=== PATIENT | female | born 1950 | race Caucasian/White ===

== ENCOUNTER 2016-06-05 02:26 | Emergency (ER) | payer OTHER ==
--- NOTE | 2016-06-05 02:51 | PROVIDER DOCUMENTATION ---
HPI-General Adult - General Source: patient, family - History of Present Illness -Gen Adult Nature of Presenting Problems: 65 year old F presents to the Ed via EMS with a cc of hypoglycemia. Pt states that she does not remember what happened. Per EMS, on their arrival pts FSBS was 38. IV was started and pt was given an amp of D50. FSBS then came up to 216. Family member states that pts mother called him and told him that pt was not feeling well. Family member states that when he got to pt she was not acting herself and refusing to drink a coke or take any kind of medications. He states that pt ate a salad for supper tonight. Location of Pain/Injury: reports: none Pain Radiation: reports: no radiation Quality of Pain: reports: none Severity: reports: moderate Onset/Duration: reports: 1-3 hours ago Timing: reports: resolved prior to arrival Associated Symptoms: reports: denies symptoms Similar Symptoms Previously?: Yes Recently seen or treated by another doctor?: No - Diabetes Related Context Context: reports: low blood sugar, change in mental status <Candie Her - Last Filed: 06/05/16 02:53> <Campbell Gonzalez - Last Filed: 06/05/16 03:16> - General Chief Complaint: Low Blood Sugar Time Seen by Provider: 06/05/16 02:39 Allergies/Adverse Reactions: Patient Allergies Allergy/AdvReac Type Severity Reaction Status Date / Time codeine AdvReac Intermediate VOMITING Verified 09/16/14 17:16 Home Medications: Home Medication List Medication Instructions Recorded Confirmed Last Taken Type Duloxetine [Cymbalta] 60 mg PO DAILY #0 06/12/13 03/04/16 03/02/16 Rx Lisinopril 10 mg PO DAILY #0 06/12/13 03/04/16 03/02/16 Rx Alprazolam [Xanax] 0.5 mg PO QHS PRN 10/31/13 03/04/16 09/15/14 History Insulin Glargine [Lantus] 15 unit SUBQ QHS 03/05/16 03/05/16 Unknown History Insulin Lispro [Humalog] 5 unit SQ TID CC 03/05/16 03/05/16 Unknown History Dicyclomine [Bentyl] 20 mg PO TID PRN PRN #20 capsule 03/06/16 Unknown Rx Levofloxacin [Levaquin] 500 mg PO DAILY #7 tablet 03/06/16 Unknown Rx Metronidazole 500 mg PO TID #21 tablet 03/06/16 Unknown Rx Pantoprazole [Protonix] 40 mg PO DAILY@0700 #10 tablet 03/06/16 Unknown Rx Review of Systems - Adult - REVIEW OF SYSTEMS - ADULT Constitutional: denies: chills, fever Eyes: reports: no symptoms reported Ears, Nose, Mouth & Throat: reports: no symptoms reported Cardiovascular: denies: chest pain, palpitations Respiratory: denies: cough, shortness of breath Gastrointestinal: denies: nausea, vomiting Genitourinary: denies: dysuria, hematuria Musculoskeletal: denies: muscle aches, muscle weakness Integumentary: denies: skin sores/ulcer, skin thickening Neurological: reports: no symptoms reported Psychiatric: reports: no symptoms reported Endocrine: reports: no symptoms reported Hematologic/Lymphatic: reports: no symptoms reported Allergic/Immunologic: reports: no symptoms reported All Other Systems: Reviewed and Negative <Candie Her - Last Filed: 06/05/16 02:53> Past History - Adult - PAST MEDICAL HISTORY-ADULT Review of Records: reports: Nursing Assessment Review, Medications Reviewed Major Childhood Illnesses: reports: denies history Cardiovascular: reports: HTN, hyperlipidemia Respiratory: reports: denies history Gastrointestinal: reports: denies history Obstetrical/Gynecological: reports: denies history Genitourinary: reports: denies history Musculoskeletal: reports: denies history Neurological: reports: denies history Psychiatric: reports: anxiety Endocrine/Immune: reports: Diabetes Diabetes Type: Type 1 Other Conditions: reports: denies history - PRIOR SURGERIES/PROCEDURES Surgical/Procedure History: reports: hysterectomy, back/neck (back surgery), other (athroscopy) - PRIOR HOSPITALIZATIONS Prior Hospitalizations: reports: none - IMMUNIZATION STATUS Childhood Immunizations: See Nurse Assessment Flu Vaccine: See Nurse Assessment - FAMILY HISTORY Family History: reviewed, not pertinent - SOCIAL HISTORY Smoking: non-smoker Substance Use: none/never Alcohol Use Frequency: never <Candie Her - Last Filed: 06/05/16 02:53> Physical Exam-General - PHYSICAL EXAM-ADULT Initial Vital Signs Reviewed: Yes - CONSTITUTIONAL General Appearance: appears well, alert, no apparent distress - RESPIRATORY Respiratory: chest non-tender, lungs clear, normal breath sounds - CARDIOVASCULAR Cardiovascular: normal peripheral pulses, regular rate, rhythm, no edema - GASTROINTESTINAL (ABDOMEN) Abdominal Exam: normal bowel sounds, non tender, soft - MUSCULOSKELETAL Extremity: normal inspection - SKIN Integumentary: normal color, normal turgor, warm/dry - PSYCHIATRIC Psych/Mental Status: normal mood/affect, normal thought content, normal thought process, oriented x 3 <Candie Her - Last Filed: 06/05/16 02:53> Departure <Candie Her - Last Filed: 06/05/16 02:53> - Departure Time of Disposition Order: 04:00 Certified Medical Emergency: Emergent <Campbell Gonzalez - Last Filed: 06/05/16 03:16> - Departure DIAGNOSIS: Hypoglycemia associated with diabetes Disposition: HOME 01 Condition: Good Additional Instructions: RECHECK SUGAR @ 6AM. IF DRIFTING LOW EAT AGAIN. Attestation - Scribe Verification/Attestation Scribe:: Candie Her Acting as Scribe for:: Campbell Gonzalez Scribe documention review:: This chart was documented by a scribe and accurately reflects the service the provider performed and the decisions made by the provider. <Candie Her - Last Filed: 06/05/16 02:53> Physician Attestation - Physician Attestation I, the provider, attest to the following statement:: Campbell Gonzalez Physician documentation Attestation:: This documentation recorded by the scribe accurately reflects the service I personally performed and the decisions made by me. <Candie Her - Last Filed: 06/05/16 02:53>
[2016-06-05 04:17] VITALS: BP 123/55
== END 2016-06-05 04:15 | disposition home or self-care (01) ==
LOC: P.ED 02:26
DX: E11.649 Type 2 diabetes mellitus with hypoglycemia without coma (principal); R41.82 Altered mental status, unspecified; I10 Essential (primary) hypertension; E78.5 Hyperlipidemia, unspecified; F41.9 Anxiety disorder, unspecified; Z79.4 Long term (current) use of insulin; Z79.899 Other long term (current) drug therapy
CPT/HCPCS: 82948

== ENCOUNTER 2018-06-02 12:15 | Inpatient (IN) ==
[2018-06-02] MEDS ORDERED: ASPIRIN PO ONE (13:33)
[2018-06-02] MEDS ORDERED: ASPIRIN PR ONE (13:33)
[2018-06-02] MEDS ORDERED: NS 1,000 ML IV ONE ×4 (13:35→18:28)
[2018-06-02 13:48] LABS: BASO# 0.03 X1000 (0.0-0.2); BASO% 0.3 % (0.0-0.8); HEMATOCRIT 39.4 % (37.0-47.0); HEMOGLOBIN 12.9 g/dL (12.0-16.0); IMM GRAN# 0.01 X1000 (0.0-0.04); IMM GRAN% 0.1 % (0.0-0.5); LYMPH# 1.04 X1000 (1.2-3.4); LYMPH% 10.1 % (20.5-51.1); MCH 28.2 PG (27-31); MCHC 32.7 g/dL (33-37); MCV 86.2 FL (81-99); MONO% 5.9 % (1.7-9.3); MPV 12.7 FL (7.4-10.4); NEUT# 8.57 X1000 (1.4-6.5); NEUT% 83.6 % (42.2-75.2); PLT 229 X1000 (130-400); RBC 4.57 XMIL (4.2-5.4); RDW 14.1 % (11.5-14.5); WBC 10.25 X1000 (4.8-10.8)
[2018-06-02 13:53] LABS: INR 0.94; PROTIME 13.1 Seconds (11.0-16.0)
--- NOTE | 2018-06-02 13:59 | PROVIDER DOCUMENTATION ---
This chart was entered by Lesly Garcia Scribe, acting as scribe for Karla Thorpe MD. HPI-General Adult - General Chief Complaint: N/V/D Stated Complaint: CHEST PAIN Time Seen by Provider: 06/02/18 12:42 Source: patient Allergies/Adverse Reactions: Patient Allergies Allergy/AdvReac Type Severity Reaction Status Date / Time codeine AdvReac Intermediate VOMITING Verified 05/14/18 10:21 Home Medications: Home Medication List Medication Instructions Recorded Confirmed Last Taken Type Duloxetine [Cymbalta] 60 mg PO DAILY #0 06/12/13 08/02/17 03/02/16 Rx Lisinopril 10 mg PO DAILY #0 06/12/13 08/02/17 03/02/16 Rx Alprazolam [Xanax] 0.5 mg PO QHS PRN 10/31/13 08/02/17 09/15/14 History Insulin Glargine [Lantus] 15 unit SUBQ QHS 03/05/16 08/02/17 Unknown History Insulin Lispro [Humalog] 5 unit SQ TID CC 03/05/16 08/02/17 Unknown History Dicyclomine [Bentyl] 20 mg PO TID PRN PRN #20 capsule 03/06/16 08/02/17 Unknown Rx Pantoprazole [Protonix] 40 mg PO DAILY@0700 #10 tablet 03/06/16 08/02/17 Unknown Rx Hydrocodone/APAP 5 mg/325 mg 1 - 2 tab PO Q6H PRN PRN #18 tablet 11/04/16 Unknown Rx [[place]-5] ATORVAstatin [Lipitor] 40 mg PO QHS #30 tab 08/06/17 Unknown Rx Aspirin 162 mg PO DAILY #30 chewtab 08/06/17 Unknown Rx Metoprolol [Lopressor] 12.5 mg PO Q6H #120 tab 08/06/17 Unknown Rx Amoxicillin/Pot Clavulanate 875 mg PO Q12HR #14 tab 05/14/18 Unknown Rx [Augmentin] - History of Present Illness -Gen Adult Nature of Presenting Problems: Patient is a 67 year old female who presents to the ED with multiple complaints. Patient states symptoms of generalized aches, nausea, vomiting, diarrhea, chest pain and back pain. Patient states symptoms started last night. Patient states she has an insulin pump and the pump was telling her, her blood sugar was elevated. Patient states taking 3 nitro prior to arrival for chest pain. Patient states having similar symptoms with her prior [place]. Location of Pain/Injury: reports: generalized Pain Radiation: reports: no radiation Quality of Pain: reports: aching Severity: reports: mild Onset/Duration: reports: last night Timing: reports: still present Context/Activities at Onset: reports: light activity Modifying Factors: improves with: nothing Associated Symptoms: reports: back/neck pain (back pain), chest pain, diarrhea, nausea, vomiting Similar Symptoms Previously?: Yes Recently seen or treated by another doctor?: No - Diabetes Related Context Context: reports: high blood sugar Review of Systems - Adult - REVIEW OF SYSTEMS - ADULT Constitutional: reports: no symptoms reported. denies: chills, fever, fatique Eyes: reports: no symptoms reported Ears, Nose, Mouth & Throat: reports: no symptoms reported Cardiovascular: reports: chest pain. denies: heart murmur, irregular heart rate Respiratory: reports: no symptoms reported Gastrointestinal: reports: diarrhea, nausea, vomiting. denies: abdominal pain Genitourinary: reports: no symptoms reported Musculoskeletal: reports: back pain, muscle aches. denies: joint pain, neck pain Integumentary: reports: no symptoms reported Neurological: reports: no symptoms reported Psychiatric: reports: no symptoms reported Endocrine: reports: no symptoms reported Hematologic/Lymphatic: reports: no symptoms reported Allergic/Immunologic: reports: no symptoms reported All Other Systems: Reviewed and Negative Past History - Adult - PAST MEDICAL HISTORY-ADULT Review of Records: reports: Nursing Assessment Review, Medications Reviewed, Social history reviewed & non-contributory. Major Childhood Illnesses: reports: denies history Cardiovascular: reports: HTN, hyperlipidemia, [place] Respiratory: reports: denies history Gastrointestinal: reports: denies history Obstetrical/Gynecological: reports: denies history Genitourinary: reports: denies history Musculoskeletal: reports: denies history Neurological: reports: denies history Psychiatric: reports: anxiety Endocrine/Immune: reports: Diabetes Other Conditions: reports: denies history - PRIOR SURGERIES/PROCEDURES Surgical/Procedure History: reports: hysterectomy, back/neck (back surgery), other (athroscopy) - PRIOR HOSPITALIZATIONS Prior Hospitalizations: reports: none - IMMUNIZATION STATUS Childhood Immunizations: See Nurse Assessment Flu Vaccine: See Nurse Assessment - FAMILY HISTORY Family History: reviewed, not pertinent - SOCIAL HISTORY Smoking: denies Substance Use: denies Living Situation: family Physical Exam-General - PHYSICAL EXAM-ADULT Initial Vital Signs Reviewed: Yes - CONSTITUTIONAL General Appearance: alert, mild distress - EYES Eyes: pink conjunctivae - HEAD, EARS, NOSE, MOUTH & THROAT HENMT: moist mucous membranes - NECK Neck: supple - RESPIRATORY Respiratory: lungs clear, normal breath sounds, no pleuratic chest pain, no respiratory distress, no accessory muscle use - CARDIOVASCULAR Cardiovascular: normal peripheral pulses, regular rate, rhythm, no edema, no murmur - GASTROINTESTINAL (ABDOMEN) Abdominal Exam: non tender, soft - LYMPHATIC Lymphatic: no adenopathy - MUSCULOSKELETAL Extremity: normal gait Peripheral Pulses: radial (R): 2+, radial (L): 2+ - SKIN Integumentary: normal color, normal turgor - NEUROLOGIC Neurologic: grossly normal, no motor/sensory deficits - PSYCHIATRIC Psych/Mental Status: normal mood/affect, normal thought content, normal thought process, oriented x 3 Progress - PLAN OF CARE/RESULTS Progress/Plan/Lab Results: Vital Signs - 8 hr 06/02/18 12:16 Temperature 98.1 F Pulse Rate 88 Respiratory Rate 20 Blood Pressure 133/066 O2 Sat by Pulse Oximetry 100 Orders Category Date Time Status Cardiac Monitoring DIRECTED Care 06/02/18 13:34 Active IV Insertion ORDERED Care 06/02/18 12:45 Active Oxygen Therapy- ED Nursing DIRECTED Care 06/02/18 13:34 Active Saline Loc NOW Care 06/02/18 13:34 Active CHEST-PORTABLE [RAD] Stat Exams 06/02/18 13:34 Ordered CBC WITH ELECTRONIC DIFF [HEME] Stat Lab 06/02/18 13:34 Uncollected CK PROFILE [SP CHEM] Stat Lab 06/02/18 13:34 Uncollected COMPREHENSIVE METABOLIC PANEL [CHEM] Stat Lab 06/02/18 13:34 Uncollected PRO B-NATRIURETIC PEPTIDE Stat Lab 06/02/18 13:34 Uncollected PROTIME WITH INR [COAG] Stat Lab 06/02/18 13:34 Uncollected PTT [COAG] Stat Lab 06/02/18 13:34 Uncollected TROPONIN T Stat Lab 06/02/18 13:34 Uncollected 0.9% Sodium Chloride Inj [Ns] 1,000 ml Med 06/02/18 13:35 Active IV 500 mls/hr Aspirin Med 06/02/18 13:33 Discontinued 300 mg TX NOW ONE Aspirin Med 06/02/18 13:33 Discontinued 325 mg PO NOW ONE CP/SOB/Palp >45 yrs of Age Stat Oth 06/02/18 13:[address] depression v3-v5, pt says when she had similar symptoms last Oct was having an [place], has stents, no chest pain on arrival, did take 3 nitro, 1/hour this am. Trop wnl, BS in 500s, emesis in ED non bloody, giving zofran 8 units regular insulin IV and starting drip, call out to hospitalist 1442, pt aware pH 7.15 1455 d/w Connie, HPI PMH EKG labs abg drip admit ICU Result Diagrams: 06/02/18 12:40 06/02/18 12:40 - EKG 1 Time of EKG reading by physician:: 12:19 EKG Read and Signed by:: Karla Thorpe EKG Interpretation (*Must complete 3 of following elements*): Abnormal Rate: 97 Rhythm: normal sinus rhythm TX Interval: normal Comments: possible left atrial enlargement; nonspecific ST abnormality. - XRAY 1 XRAY Study: Chest Impression: See EMR Report ( EXAM: CHEST-PORTABLE INDICATION: chest pain TECHNIQUE: One view COMPARISON: 05/14/2018 FINDINGS: There is a calcified granuloma at the right lung base. The lungs are grossly clear. There is no discrete pleural fluid collection or pneumothorax. The cardiomediastinal silhouette and central vasculature are grossly unremarkable. IMPRESSION: No evidence of acute pathology by plain radiograph. Electronically signed by Daniel Hickey 06/02/2018 2:06 PM 06/02/18 1406 Interpreting Physician: Daniel Hickey MD Dictated Date/Time: 06/02/18 1406 cc: Karla Thorpe MD; Daniel Day MD) Departure - Departure Date of Disposition Decision: 06/02/18 Time of Disposition Decision: 14:44 DIAGNOSIS: Hyperglycemia, Cardiac ischemia, DKA (diabetic ketoacidoses) Disposition: ADMITTED INPATIENT 09 Certified Medical Emergency: Emergent Condition: Good Referrals and Follow-Ups: Daniel Day MD [Primary Care Provider] - - Critical Care Note This patient required my direct & personal management of CC.: Yes Total Time (mins): 45 Critical Care Statement: This patient required my direct personal management to treat or rule out processes, the absence of which, could potentiallly result in sudden, clinically significant life or limb threatening deterioration. Attestation - Physician/ MARCEL Attestation The physician spent face to face time with patient:: Yes Advanced Practice Provider documentation review:: Supervising physician onsite and consulted in the evaluation and care of this patient. The physician did have a face to face encounter with the patient. This chart was documented by the indicated scribe, (Lesly Garcia Scribe) and accurately reflects the services I performed and decisions made by me, Karla Thorpe MD, as attested by the provider's signature.
[2018-06-02 14:05] LABS: ALBUMIN 4.1 g/dL (3.5-5.0); CALCIUM 9.3 mg/dL (8.8-10.2); POTASSIUM 5.5 mmol/L (3.5-5.1); TOTAL BILIRUBIN 0.9 mg/dL (0.20-1.00); TOTAL PROTEIN 6.8 g/dL (6.3-8.3)
--- NOTE | 2018-06-02 14:08 | Diag Imaging Result Doc PS360 ---
EXAM: CHEST-PORTABLE INDICATION: chest pain TECHNIQUE: One view COMPARISON: 05/14/2018 FINDINGS: There is a calcified granuloma at the right lung base. The lungs are grossly clear. There is no discrete pleural fluid collection or pneumothorax. The cardiomediastinal silhouette and central vasculature are grossly unremarkable. IMPRESSION: No evidence of acute pathology by plain radiograph. Electronically signed by Daniel Hickey 06/02/2018 2:06 PM
[2018-06-02] MEDS ORDERED: HUMULIN R (PARKWAY) IV ONE (14:13)
[2018-06-02] MEDS ORDERED: ZOFRAN IV ONE (14:30)
[2018-06-02 14:35] LABS: BE -18.8 mmoll (-2.0-2.0); BLOOD TYPE VENOUS; PO2(98.6) 48 mmHg (30-55); SAMPLE BLOOD; SAO2 83.1 % (40.0-85.0)
[2018-06-02 14:41] LABS: pH(98.6) 7.16 (7.32-7.43)
[2018-06-02 14:42] LABS: PCO2(98.6) 23 mmHg (40-60)
[2018-06-02] MEDS ORDERED: NS 2,000 ML ONE (16:45)
[2018-06-02 16:53] LABS: PHOSPHORUS 4.5 mg/dL (2.7-4.5); POTASSIUM 4.3 mmol/L (3.5-5.1)
[2018-06-02] MEDS ORDERED: ZOFRAN IV PRN (17:23)
[2018-06-02] MEDS ORDERED: HUMULIN R (PARKWAY) 100 UNITS in NS 100 ML IV SCH (17:30)
[2018-06-02] MEDS ORDERED: ROBITUSSIN-DM PO PRN (17:35)
[2018-06-02] MEDS ORDERED: ROCEPHIN ONE (17:47)
[2018-06-02] MEDS ORDERED: NS 50 ML ONE (17:48)
[2018-06-02] MEDS ORDERED: ROCEPHIN 1 GM in NS 50 ML IV SCH (18:00)
[2018-06-02] MEDS ORDERED: HUMULIN R (PARKWAY) 100 UNITS in NS 100 ML IV ONE (18:00)
--- NOTE | 2018-06-02 18:22 | HISTORY AND PHYSICAL ---
CHIEF COMPLAINT: Nausea, vomiting, diarrhea. HISTORY OF PRESENT ILLNESS: This is a 67-year-old female with a history of insulin-dependent diabetes mellitus, hypertension and CAD status post NH in July 2017. She presents to the emergency room complaining of about 24 hours of nausea, vomiting, and diarrhea. She has an insulin pump. She states that she feels like her pump is not functioning well. She reported blood sugars in the 300s per her pump. She denied any fevers, chills. She did state that after the persistent vomiting that she started having her back and chest began to hurt during episodes of vomiting. She took 3 nitroglycerin prior to presenting to the emergency room. She continues to have pain during vomiting. PAST MEDICAL HISTORY: 1. Diabetes mellitus insulin-dependent with insulin pump. 2. Depression. 3. Hypertension. 4. CAD status post NH in July 2017. PAST SURGICAL HISTORY: Hysterectomy, right shoulder surgery, cervical disk surgery and bilateral knee arthroscopies. ALLERGIES: Codeine which causes vomiting. SOCIAL HISTORY: She lives with her . She denies alcohol, tobacco, or illicit drug use. REVIEW OF SYSTEMS: Discussed with the patient with pertinent positives stated in the HPI. She denied any syncope, dizziness, any shortness of breath, PND, orthopnea, any palpitations, any black or bloody vomitus or stools and constipation, any hematuria, dysuria, frequency, urgency. PHYSICAL EXAMINATION: GENERAL: This is a very pleasant 67-year-old female who is sitting up in the bed in no distress. VITAL SIGNS: Blood pressure is 133/66 with a heart rate of 80, respirations are 20, temperature is 98.4 degrees with room air saturations 98-100%. EYES: Pupils are equal, round, react to light. EOMs are intact. Sclerae are anicteric. CARDIOVASCULAR: Regular rate and rhythm. S1 and S2 appreciated. No murmur. She has no lower extremity edema. Calves are nontender to palpation with peripheral pulses palpable x4 extremities. PULMONARY: Breath sounds does have some rhonchi scattered throughout that clear to cough. Chest rises and falls symmetric with respiration. Chest wall is tender to palpation midsternal . GASTROINTESTINAL: Abdomen soft, nontender, nondistended with bowel sounds in all 4 quadrants. NEUROLOGIC: She is alert and oriented x3. SKIN: Warm and dry. LABS: WBC is 10.2 with hemoglobin 12.9, hematocrit 39.4, platelets of 229,000. Sodium is 134, potassium 4.3, CO2 is 13 with an anion gap of 28, BUN 22, creatinine 1 with a glucose of 523. Troponin is negative. Chest x-ray reveals no evidence of acute pathology. ASSESSMENT AND PLAN: 1. Diabetic ketoacidosis. 2. Diabetes mellitus type 1 with hyperglycemia. 3. Depression. 4. Hypertension. 5. Recent upper respiratory infection. PLAN: The patient will be admitted to ICU for close monitoring. She will be placed on DKA protocol. Will draw a stat BMP, magnesium, BNP and cardiac enzymes as well as troponin. She will remain NPO at present. We will identify her home medications and continue these as appropriate. As she has had a recent upper respiratory infection she continues with a cough will give Robitussin DM and Rocephin. Further treatments pending hospital course. Dictated by CRISTI Dwyer for Alex Rosales MD This chart was documented by, CRISTI Dwyer and accurately reflects the services performed, treatment plan and medical decisions as attested by the providers signature Alex Rosales MD. cc: CRISTI Dwyer MD
[2018-06-02] MEDS ORDERED: POTASSIUM CHLORIDE 40 MEQ/SWI 40 MEQ/100 ML IVPB IV PRN (20:20)
[2018-06-02] MEDS ORDERED: MAGNESIUM SULFATE 2 GM/S.W.I. 2 GM/50 ML IVPB IV PRN (20:20)
[2018-06-02] MEDS ORDERED: POTASSIUM CHLORIDE 20 MEQ/SWI 20 MEQ/100 ML IVPB IV PRN (20:20)
[2018-06-02] MEDS ORDERED: SODIUM PHOSPHATE 30 MMOL in D5W 250 ML IV PRN (20:20)
[2018-06-02] MEDS ORDERED: POTASSIUM CHLORIDE 20% LIQUID PO PRN (20:20)
[2018-06-02] MEDS ORDERED: POTASSIUM CHLORIDE 10% LIQUID PO PRN (20:20)
[2018-06-02] MEDS ORDERED: D5 NS 1,000 ML IV SCH (20:20)
[2018-06-02] MEDS ORDERED: D50W SYRINGE IV PRN (20:20)
[2018-06-02 20:22] LABS: BE -9.2 mmoll (-2.0-2.0); BLOOD TYPE VENOUS; HCO3-(ACT) 16.1 mmoll (22-27); PCO2(98.6) 40 mmHg (40-60); PO2(98.6) 13 mmHg (30-55); SAMPLE BLOOD; SAO2 26.8 % (40.0-85.0); pH(98.6) 7.25 (7.32-7.43)
[2018-06-02] MEDS ORDERED: NS IV SCH (20:32)
[2018-06-02] MEDS ORDERED: HUMULIN R IV SCH (20:32)
[2018-06-02] MEDS: NS 1,000 ML IV SCH ×4 (20:33→23:00)
[2018-06-02 20:38] LABS: AGAP 16; BUN 20 mg/dL (8-22); CALCIUM 8.2 mg/dL (8.8-10.2); CHLORIDE 105 mmol/L (98-107); COSMO 286; CREATININE 0.9 mg/dL (0.5-0.9); ESTIMATED GFR > 60; GLUCOSE 234 mg/dL (70-104); PHOSPHORUS 3.1 mg/dL (2.7-4.5); POTASSIUM 4.5 mmol/L (3.5-5.1); SODIUM 138 mmol/L (136-145); TCO2 17 mmol/L (25-35)
[2018-06-02] MEDS ORDERED: XANAX PO SCH (21:00)
[2018-06-02 23:43] LABS: BE -5.3 mmoll (-2.0-2.0); BLOOD TYPE VENOUS; HCO3-(ACT) 20.5 mmoll (22-27); PCO2(98.6) 37 mmHg (40-60); PO2(98.6) 37 mmHg (30-55); SAMPLE BLOOD; SAO2 83.9 % (40.0-85.0); pH(98.6) 7.34 (7.32-7.43)
--- NOTE | 2018-06-03 00:01 | HISTORY AND PHYSICAL ---
ADDENDUM Patient seen and examined by myself. Full note dictated and discussed with nurse practitioner. Patient presented to the emergency department with increased nausea, vomiting, and diarrhea. She thinks her insulin pump has not been working correctly. We will admit her to the ICU for diabetic ketoacidosis. Place her on insulin and follow. cc: Alex Rosales MD
[2018-06-03 00:23] LABS: AGAP 11; BUN 17 mg/dL (8-22); CHLORIDE 107 mmol/L (98-107); COSMO 275; CREATININE 0.8 mg/dL (0.5-0.9); ESTIMATED GFR > 60; GLUCOSE 133 mg/dL (70-104); PHOSPHORUS 2.9 mg/dL (2.7-4.5); POTASSIUM 4.7 mmol/L (3.5-5.1); SODIUM 136 mmol/L (136-145); TCO2 18 mmol/L (25-35)
[2018-06-03] MEDS: HUMULIN R (PARKWAY) SUBQ SCH ×3 (06:18→16:13)
[2018-06-03] MEDS: NS 1,000 ML IV SCH (06:21)
[2018-06-03] MEDS ORDERED: XANAX PO PRN ×2 (06:47→06:51)
[2018-06-03] MEDS ORDERED: NITROGLYCERIN SL PRN (06:47)
[2018-06-03] MEDS ORDERED: PRILOSEC PO SCH (07:00)
[2018-06-03 07:27] LABS: BASO# 0.02 X1000 (0.0-0.2); BASO% 0.2 % (0.0-0.8); EOS# 0.02 X1000 (0.0-0.7); EOS% 0.2 % (0.0-10.0); HEMATOCRIT 31.9 % (37.0-47.0); HEMOGLOBIN 10.6 g/dL (12.0-16.0); IMM GRAN# 0.02 X1000 (0.0-0.04); IMM GRAN% 0.2 % (0.0-0.5); LYMPH# 2.31 X1000 (1.2-3.4); LYMPH% 19.6 % (20.5-51.1); MCH 28.5 PG (27-31); MCHC 33.2 g/dL (33-37); MCV 85.8 FL (81-99); MONO# 1.53 X1000 (0.11-0.59); MPV 11.9 FL (7.4-10.4); NEUT# 7.91 X1000 (1.4-6.5); NEUT% 66.8 % (42.2-75.2); PLT 206 X1000 (130-400); RBC 3.72 XMIL (4.2-5.4); RDW 14.3 % (11.5-14.5); WBC 11.81 X1000 (4.8-10.8)
[2018-06-03 07:33] LABS: AGAP 15; ALBUMIN 2.9 g/dL (3.5-5.0); ALKALINE PHOSPHATASE 94 U/L (32-104); BUN 14 mg/dL (8-22); CALCIUM 7.9 mg/dL (8.8-10.2); CHLORIDE 107 mmol/L (98-107); COSMO 281; CREATININE 0.8 mg/dL (0.5-0.9); ESTIMATED GFR > 60; GLUCOSE 248 mg/dL (70-104); GOT 25 U/L (10-30); GPT 19 U/L (10-36); POTASSIUM 5.2 mmol/L (3.5-5.1); SODIUM 136 mmol/L (136-145); TCO2 14 mmol/L (25-35); TOTAL PROTEIN 5.1 g/dL (6.3-8.3)
[2018-06-03 07:42] LABS: HEMOGLOBIN A1C 10.1 % (4.8-6.0)
[2018-06-03] MEDS: LOPRESSOR PO SCH ×2 (07:52→14:41)
[2018-06-03] MEDS ORDERED: INSULIN PEN NEEDLES MISC PRN (08:18)
[2018-06-03] MEDS ORDERED: CYMBALTA PO SCH (09:00)
[2018-06-03] MEDS ORDERED: ZITHROMAX PO SCH (09:00)
[2018-06-03] MEDS ORDERED: EFFIENT PO SCH (09:00)
[2018-06-03] MEDS ORDERED: BASAGLAR SUBQ SCH (09:00)
[2018-06-03] MEDS ORDERED: NORVASC PO SCH ×2 (09:00)
--- NOTE | 2018-06-03 09:31 | EKG Report ---
Test Performed on : 06/02/2018 12:19:05 PM Test Reason : ER Blood Pressure : / mmHG Vent. Rate : 097 BPM Atrial Rate : 097 BPM P-R Int : 142 ms QRS Dur : 086 ms QT Int : 372 ms P-R-T Axes : 072 079 040 degrees QTc Int : 472 ms Normal sinus rhythm. Possible Left atrial enlargement Nonspecific ST abnormality Abnormal ECG When compared with ECG of 08-AUG-2017 13:17, Nonspecific T wave abnormality no longer evident in Anterior leads Unconfirmed Result
[2018-06-03] MEDS: HUMALOG (PARKWAY) SUBQ SCH ×2 (12:40→17:03)
[2018-06-03 16:10] VITALS: BP 110/53
--- NOTE | 2018-06-03 20:59 | DISCHARGE SUMMARY ---
ADMISSION DATE: 06/02/2018 DISCHARGE DATE: 06/03/2018 TECHNICAL OPERATIONS SPECIALIST: Barbie Schulz M.D. In [place], [place]. DIAGNOSES: 1. Diabetic ketoacidosis. 2. Diabetes mellitus type 1 with hyperglycemia. 3. Depression. 4. Hypertension. 5. Recent upper respiratory infection. DIAGNOSTICS: Chest x-ray revealed no evidence of acute pathology. HOSPITAL COURSE: Ms. Sanz presented to the emergency room complaining of nausea and vomiting. She was found to be in DKA with blood sugar over 500. She does have an insulin pump, and she feels that her insulin pump was not working correctly. We did de-access the pump. She was treated with DKA protocol. Thankfully, we were able to stop the insulin drip. She is able to eat diabetic diet for breakfast and lunch without any nausea, vomiting or abdominal pain. Blood sugars have been in the 120s to 200 range. She did have an A1c of 10.1. She has had an upper respiratory infection for about 2 and a half weeks. In fact, she was in the emergency room on 05/14/2018. She did have a pretty persistent cough as well as a temperature of 99.6 degrees just after admission. We did give Rocephin and azithromycin, and she will be discharged on Omnicef and azithromycin. I spoke to her contract project manager, Dr. Barbie Schulz, updated her on events. Dr. Schulz recommended that we place her on 10 units of Lantus in the morning and NovoLog 5 with meals on discharge, and she will see her in the office in the morning. She has been instructed to take her insulin pump so that it can be evaluated. DISCHARGE VITAL SIGNS: Blood pressure is 110/53 with a heart rate of 90, respirations are 20, temperature is 97 degrees. DISCHARGE PHYSICAL EXAMINATION: Cardiovascular: Regular rate and rhythm. S1 and S2 appreciated. She has no lower extremity edema with peripheral pulses palpable x4 extremities. Pulmonary: She does have bilateral rhonchi that do somewhat clear to cough. Chest rises and falls symmetrically with respiration. Chest wall is nontender to palpation. Gastrointestinal: Abdomen is soft, nontender, nondistended with bowel sounds in all 4 quadrants. Neurologic: She is alert and oriented x3. DISCHARGE MEDICATIONS: 1. Omnicef 300 mg p.o. b.i.d. x5 days. 2. Z-[place], take as directed. 3. Cymbalta 60 mg p.o. daily. 4. Lantus insulin 10 units in the morning. 5. Metoprolol 12.5 mg p.o. q.6 hours. 6. Amlodipine 2.5 mg p.o. daily. 7. Xanax 0.25 as directed. 8. NovoLog 5 units subcutaneous before meals. FOLLOWUP: She is to go to Dr. Schulz's office in the morning, take her insulin pump with her for further instructions. She is being discharged home in stable condition with family members. TIME SPENT: This is a greater than 30-minute discharge. Dictated by CRISTI Dwyer for Alex Rosales MD This chart was documented by, CRISTI Dwyer and accurately reflects the services performed, treatment plan and medical decisions as attested by the providers signature Alex Rosales MD. cc: CRISTI Dwyer MD Bethany Jackson, MD
--- NOTE | 2018-06-04 06:42 | DISCHARGE SUMMARY ---
ADMISSION DATE: 06/02/2018 DISCHARGE DATE: 06/03/2018 DISCHARGE DIAGNOSIS: 1. Diabetes with poor home control with an A1c at 10. 2. Diabetic ketoacidosis, resolved. 3. Depression. 4. Hypertension. CONSULTATIONS: None. PROCEDURES: None. BRIEF HOSPITAL COURSE: The patient is a 67-year-old female who has an insulin pump. Uncertain if she is aware of how to use this. The patient feels as though her pump has quit working. We admitted her to the hospital with mild diabetic ketoacidosis with acetone positive and an elevated blood sugar. Thankfully, this resolved very quickly as expected. She was placed in the hospital initially in ICU on protocol, given insulin drip. She was given IV fluids. Insulin drip has been stopped. She has been advanced to her diabetic diet, which she has tolerated well. DISPOSITION: The patient is to be discharged home on Lantus. She will follow up in the next day or two with her primary technology and engineering teacher who will adjust her pump. We have spoken to the technology and engineering teacher and this has been set up by the nurse practitioner. TIME SPENT: Greater than 30 minutes was spent in total care. cc: Alex Rosales MD
== END 2018-06-03 17:20 | disposition home or self-care (01) | DRG 639 ==
LOC: P.ED 12:15 → P.ICU 19:18
PROVIDERS: ATTEND Family Medicine
CPT/HCPCS: 71010; 71045; 80048; 80053; 82009; 82550; 82805; 82948; 83036; 83735; 83880; 84100; 84484; 85025; 85610; 85730; 93005; 94799; 96361; 96365; 96375; 99285; A9270; J0696; J1815; J2405; J7030; J7042; XXXXX

== ENCOUNTER 2019-07-08 08:25 | Day surgery (SDC) ==
[2019-07-08] MEDS ORDERED: METHYLENE BLUE 0.5% ONE (09:01)
[2019-07-08] MEDS ORDERED: MARCAINE 0.25% PF/EPI 1:200,000 ONE (09:01)
[2019-07-08] MEDS ORDERED: XYLOCAINE-MPF 2% ONE (09:24)
[2019-07-08] MEDS ORDERED: QUELICIN (DOSE) ONE (09:24)
[2019-07-08] MEDS ORDERED: DIPRIVAN 1% ONE (09:24)
[2019-07-08] MEDS ORDERED: LR 1,000 ML ONE ×2 (09:43→12:38)
[2019-07-08] MEDS ORDERED: KEFZOL 1 GM/D5W 1 GM/50 ML IVPB ONE (09:44)
[2019-07-08 10:08] LABS: HEMATOCRIT 35.8 % (37.0-47.0); HEMOGLOBIN 11.3 g/dL (12.0-16.0); MCH 28.2 PG (27-31); MCHC 31.6 g/dL (33-37); MCV 89.3 FL (81-99); MPV 11.9 FL (7.4-10.4); RBC 4.01 XMIL (4.2-5.4); RDW 14.8 % (11.5-14.5); WBC 4.59 X1000 (4.8-10.8)
[2019-07-08] MEDS ORDERED: FENTANYL ONE (10:20)
[2019-07-08] MEDS ORDERED: ROBINUL ONE (10:31)
[2019-07-08 10:35] LABS: AGAP 10; ALB/GLOB RATIO 1.8; ALBUMIN 3.7 g/dL (3.5-5.0); ALKALINE PHOSPHATASE 103 U/L (32-104); BUN 9 mg/dL (8-22); CALCIUM 8.8 mg/dL (8.8-10.2); CHLORIDE 101 mmol/L (98-107); COSMO 284; CREATININE 0.8 mg/dL (0.5-0.9); ESTIMATED GFR > 60; GLUCOSE 276 mg/dL (70-104); GOT 52 U/L (10-30); GPT 41 U/L (10-36); POTASSIUM 4.5 mmol/L (3.5-5.1); SODIUM 138 mmol/L (136-145); TCO2 27 mmol/L (25-35); TOTAL PROTEIN 5.8 g/dL (6.3-8.3)
[2019-07-08] MEDS ORDERED: ZOFRAN ONE (10:45)
[2019-07-08] MEDS ORDERED: DECADRON ONE (10:45)
--- NOTE | 2019-07-08 10:47 | Diag Imaging Result Doc PS360 ---
EXAM: LYMPHOSCINTIGRAPHY W/IMG INDICATION: LT BREAST CANCER, LT SENTINEL NODE BIOPSY TECHNIQUE: COMPARISON: None. FINDINGS: 530 uCi of technetium 99 Lymphoseek was injected intradermally in the left breast by Dr. Jorge Luis Juarez prior to surgery for the purposes of intraoperative sentinel node localization. Expected lili activity is seen in the left axilla. IMPRESSION: As above. Electronically signed by Daniel Hickey 07/08/2019 10:45 AM
[2019-07-08] MEDS ORDERED: OFIRMEV 1000 MG/ISOTONIC SOLN 1,000 MG/100 ML BOTTLE ONE (10:51)
--- NOTE | 2019-07-08 11:58 | OPERATIVE NOTE ---
PROCEDURE DATE: 07/08/2019 NAME OF THE PROCEDURE: 1. Left sentinel lymph node injection. 2. Left sentinel lymph node biopsy. 3. Left total mastectomy. SURGEON: Jorge Luis Juarez MD. SURGERY TEACHER: Rogelio. PREOPERATIVE DIAGNOSIS: Cancer of the left breast. POSTOPERATIVE DIAGNOSIS: Cancer of the left breast. 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 She opts for a mastectomy without reconstruction. DESCRIPTION OF PROCEDURE: Satisfactory general endotracheal anesthesia was achieved. The breast was injected with 5 mL of methylene blue in the periareolar area and then massaged the breast for 4 0.5 minutes. The breast was then in the proximal arm. We then prepped and draped in a sterile fashion. We made an elliptical incision around the nipple-areolar complex to include the core needle biopsy site with a transverse extension in the axilla. We anesthetized the skin in the axilla with 0.25 Marcaine with epinephrine and made a transverse incision into the axillary fat. We identified a blue node. We resected it, clipping off the feeding lymphatics. We then interrogated the axilla with the gamma probe. We had to remove 3 additional areas that had some blue dye, but did not note any activity. Another area did have activity, but no blue dye, so we sent the 1st blue node and the area of activity as our 2 sentinel nodes. The other small once that did not have any activity with the gamma probe were sent for permanent section. We then incised the skin in the area of the ellipse and carried our incision into the subcutaneous tissue. We then used the skin hooks, raised them superiorly and developed a subcutaneous flap superiorly to the clavicle, then inferiorly down to the serratus and rectus. We then began dissecting the breast off the pectoralis major using electrocautery. We came from medial to lateral until we reached the edge of the pectoralis major muscle. We got word back that are 2 sentinel lymph nodes were negative. So, we amputated the breast at this point. I left the rest of the axillary contents alone. We achieved satisfactory hemostasis. We placed a Maximiliano drain within the axilla, bringing it out laterally, and another Maximiliano drain medially, laying it under the superior skin flap. These were secured to the skin with 2-0 silks. The skin was then reapproximated with karina. Negative pressure was applied to the drains evacuating the space. Sterile dressings were applied. She tolerated it well, was sent to the recovery room in satisfactory condition. cc: Jorge Luis Juarez MD
[2019-07-08] MEDS: DILAUDID ONE ×4 (12:02→12:30)
[2019-07-08] MEDS ORDERED: ZOFRAN IV PRN (13:26)
[2019-07-08] MEDS ORDERED: DILAUDID IV PRN (13:26)
[2019-07-08] MEDS ORDERED: NITROGLYCERIN SL PRN (13:26)
[2019-07-08] MEDS ORDERED: LR 1,000 ML IV SCH (13:26)
[2019-07-08] MEDS: NORCO-10 PO PRN ×2 (19:00→23:09)
[2019-07-08] MEDS ORDERED: HUMALOG SUBQ ONE (19:15)
--- NOTE | 2019-07-08 19:34 | GENERAL SURGERY PROGRESS NOTE ---
DATE: 07/08/2019 SUBJECTIVE: Ms. Sanz is doing generally well. She has had some drainage from both RICCARDO drains. Minimal ecchymosis is noted. No significant swelling is present. Her pain seems to be controlled. We will check her CBC in the morning. Hopefully be able to discharge her tomorrow. cc: Jorge Luis Juarez MD
[2019-07-08] MEDS ORDERED: CRESTOR PO SCH (21:00)
[2019-07-08] MEDS: LOPRESSOR PO SCH (23:08)
[2019-07-08] MEDS: IMDUR PO SCH (23:09)
[2019-07-09 05:28] VITALS: BP 112/50
[2019-07-09 06:35] LABS: HEMOGLOBIN 9.7 g/dL (12.0-16.0); MCH 27.2 PG (27-31); MCHC 30.3 g/dL (33-37); MCV 89.6 FL (81-99); MPV 11.9 FL (7.4-10.4); RBC 3.57 XMIL (4.2-5.4); RDW 14.6 % (11.5-14.5); WBC 5.42 X1000 (4.8-10.8)
[2019-07-09] MEDS ORDERED: HUMALOG SUBQ SCH (08:00)
--- NOTE | 2019-07-09 08:47 | GENERAL SURGERY PROGRESS NOTE ---
DATE: 07/09/2019 SUBJECTIVE: Ms. Sanz is doing generally well. She is awake and alert and her pain is controlled. Her hemoglobin is 9.7, hematocrit 32. Some ecchymosis in her superior skin flap, but otherwise her wound looks okay. Her drains are functioning. RICCARDO #1 at 96; #2 had 71. We will leave her drains in, we will allow her to go home. She will return to see me in the office in 3 days, and we should be able to remove her drain at that time. She is to leave her bandage on until we see her in 3 days. cc: Jorge Luis Juarez MD
[2019-07-09] MEDS ORDERED: LANTUS INSULIN SUBQ SCH (09:00)
[2019-07-09] MEDS ORDERED: NORVASC PO SCH (09:00)
[2019-07-09] MEDS ORDERED: ALTACE PO SCH (09:00)
[2019-07-09] MEDS ORDERED: CYMBALTA PO SCH (09:00)
[2019-07-09] MEDS: NORCO-10 PO PRN (09:12)
[2019-07-09] MEDS: LOPRESSOR PO SCH (09:12)
[2019-07-09] MEDS: IMDUR PO SCH (09:12)
[2019-07-09 09:20] LABS: URINE SOURCE CLEAN CATCH
[2019-07-09 09:44] LABS: BILIRUBIN URINE NEGATIVE (NEGATIVE); BLOOD URINE NEGATIVE (NEGATIVE); COLOR YELLOW; GLUCOSE URINE >1000 mg/dL (NEGATIVE); KETONE URINE 20 mg/dL (NEGATIVE); LEUKOCYTES URINE NEGATIVE (NEGATIVE); NITRITE URINE NEGATIVE (NEGATIVE); PH URINE 5.5; PROTEIN URINE NEGATIVE (NEGATIVE); SP GRAVITY URINE 1.021; TURBIDITY URINE CLEAR (CLEAR); UROBILINOGEN URINE NORMAL (NORMAL)
[2019-07-09 09:46] LABS: UR EPITHELIAL CELLS <10 /HPF (<10); URINE BACTERIA NEGATIVE /HPF; URINE RBC <10 /HPF (<10); URINE WBC <10 /HPF (<10)
== END 2019-07-09 09:47 | disposition other institution (70) ==
LOC: OR 08:25 → 4N 08:25 → OR 07-09 09:47
PROVIDERS: ATTEND Surgery